=== PATIENT | male | born 1995 | race African-American/Black ===

== ENCOUNTER 2024-02-13 07:20 | Day surgery (SDC) | payer MEDICAID, SELFPAY ==
[2024-02-13 08:03] VITALS: BP 146/88; PULSE 90; RESP 11; TEMP 536.7; TEMP 998.1; O2SAT 100; BMI 34.8
[2024-02-13] MEDS: DiphenhydrAMINE INJ 50 MG/ML VIAL 25 MG IV (09:33)
[2024-02-13 09:35] VITALS: BP 147/100; PULSE 89; RESP 20; O2SAT 100
[2024-02-13] MEDS: MIDAZOLAM INJ 1 MG/ML VIAL 2 ML (ASD USE ONLY) 2 MG IV (09:35)
[2024-02-13] MEDS: fentaNYL CIT INJ 50 mCg/ML AMP 2ML (ASD USE ONLY) IV (09:35)
[2024-02-13 09:39] VITALS: BP 123/79; PULSE 87; RESP 12; O2SAT 100
[2024-02-13 09:45] VITALS: BP 127/77; PULSE 88; RESP 19; TEMP 36.6; O2SAT 98
[2024-02-13 09:55] VITALS: BP 129/83; PULSE 84; RESP 14; O2SAT 98
[2024-02-13 10:05] VITALS: BP 131/76; PULSE 86; RESP 12; TEMP 36.6; O2SAT 99
--- NOTE | 2024-02-13 10:37 | SUR.PHASEII ---
0945: Pt received in recovery. Report from Cecilia LONDON. Pt groggy. Easily aroused with eye opening then drifts back to sleep. Resp even, unlabored. VS stable. Denies pain. 1005: Pt more awake, alert. Sitting up tolerating po fluids with no difficulty swallowing and no n/v. 1020: Pt fully awake, oriented to place. Pt assisted to restroom. Ambulation steady. Pt and care provider stated understanding of discharge instructions. Pt discharged from [facility] in stable condition.
== END 2024-02-13 10:20 | disposition home or self-care (01) ==
PROVIDERS: Referring Provider Specialist; Visit Provider Specialist
PROC: (CPT 43239; principal; 2024-02-13 14:30)
DX: K20.91 Esophagitis, unspecified with bleeding (principal); K29.71 Gastritis, unspecified, with bleeding; D62 Acute posthemorrhagic anemia
CPT/HCPCS: 43239; J1200; J2250; J3010